=== PATIENT | male | born 1945 | race Caucasian/White ===

== ENCOUNTER 2019-09-05 23:24 | Emergency (ER) | payer MEDICARE, OTHER ==
[~2019-09-05] VITALS: Ht 188 cm; Wt 97.0 kg
--- NOTE | 2019-09-05 23:47 | ED General ---
General Chief Complaint: Cardiac/General Problems Stated Complaint: AXIETY Source of Information: Patient, EMS History of Present Illness Date Seen by Provider: Sep 05, 2019 Time Seen by Provider: 23:24 Initial Comments 74 yo M presenting with complaints of not feeling right. He initially was an EMS call for chest pain. However when EMS arrived he was shaking and seemed anxious and stated that he did not feel right. He has a history of atrial fibrillation. He reports that his blood pressure has been very labile recently. He has also been having a lot of indigestion and heartburn. He does drink beer regularly. He reported drinking 3 beers today. 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 He denies having any cough or congestion. He has no nausea or vomiting. He has had no fever or chills. He denies any pain with urination or change in his bowels. Allergies and Home Medications Allergies Coded Allergies: Sulfa (Sulfonamide Antibiotics) (Verified Allergy, Unknown, 09/06/19) Patient Home Medication List Home Medication List Reviewed: Yes Review of Systems Review of Systems Constitutional: No chills, No fever; malaise EENTM: no symptoms reported Respiratory: No cough, No dyspnea on exertion, No hemoptysis, No short of breath, No stridor, No wheezing Cardiovascular: see HPI; No chest pain (initially an EMS call was for chest pain but patient denies having any chest pain. He states he just doesn't feel right), No edema, No palpitations, No syncope Gastrointestinal: No abdominal pain, No diarrhea; heartburn; No nausea, No vomiting Genitourinary: No dysuria, No frequency Musculoskeletal: no symptoms reported Skin: no symptoms reported Psychiatric/Neurological: Anxiety; Denies Headache, Denies Numbness, Denies Paresthesia Past Xidaqll-Taawpt-Xeraxl Hx Past Med/Social Hx: Reviewed Nursing Past Med/Soc Hx Patient Social History Recent Foreign Travel: No Contact w/Someone Who Travel: No Past Medical History Cardiac: Yes Coronary Artery Disease, High Cholesterol, Hypertension Gastrointestinal: Yes Gastroesophageal Reflux Physical Exam Vital Signs Vital Signs - First Documented 09/05/19 23:32 Temp 36.9 Pulse 71 Resp 25 B/P (MAP) 172/75 (107) Pulse Ox 97 O2 Delivery Room Air Capillary Refill : Height, Weight, BMI Height: '" Weight: lbs. oz. kg; BMI Method: General Appearance: No Apparent Distress, WD/WN HEENT: PERRL/EOMI, Normal ENT Inspection, Pharynx Normal Neck: Full Range of Motion, Normal Inspection, Non Tender, Supple Respiratory: Chest Non Tender, Lungs Clear, Normal Breath Sounds, No Accessory Muscle Use, No Respiratory Distress Cardiovascular: Regular Rate, Rhythm, No Edema, No Murmur, Normal Peripheral Pulses Gastrointestinal: Normal Bowel Sounds, No Pulsatile Mass, Non Tender, Soft Extremity: Normal Capillary Refill, Non Tender, No Calf Tenderness, No Pedal Edema Neurologic/Psychiatric: Alert, Oriented x3, electroplater automatic II-XII Norm as Tested Skin: Normal Color, Warm/Dry Progress/Results/Core Measures Suspected Sepsis SIRS Temperature: Pulse: Respiratory Rate: Laboratory Tests 09/05/19 23:30: White Blood Count 11.7H Blood Pressure / Mean: Laboratory Tests 09/05/19 23:30: Creatinine 1.08, INR Comment 0.9, Platelet Count 257, Total Bilirubin 0.3 Results/Orders Lab Results Laboratory Tests Test 09/05/19 23:30 Range/Units White Blood Count 11.7 H 4.3-11.0 10^3/uL Red Blood Count 4.42 4.35-5.85 10^6/uL Hemoglobin 14.2 13.3-17.7 G/DL Hematocrit 42 40-54 % Mean Corpuscular Volume 96 80-99 FL Mean Corpuscular Hemoglobin 32 25-34 PG Mean Corpuscular Hemoglobin Concent 34 32-36 G/DL Red Cell Distribution Width 12.7 10.0-14.5 % Platelet Count 257 130-400 10^3/uL Mean Platelet Volume 9.5 7.4-10.4 FL Neutrophils (%) (Auto) 57 42-75 % Lymphocytes (%) (Auto) 28 12-44 % Monocytes (%) (Auto) 12 0-12 % Eosinophils (%) (Auto) 2 0-10 % Basophils (%) (Auto) 1 0-10 % Neutrophils # (Auto) 6.6 1.8-7.8 X 10^3 Lymphocytes # (Auto) 3.2 1.0-4.0 X 10^3 Monocytes # (Auto) 1.4 H 0.0-1.0 X 10^3 Eosinophils # (Auto) 0.3 0.0-0.3 10^3/uL Basophils # (Auto) 0.1 0.0-0.1 10^3/uL Prothrombin Time 12.9 12.2-14.7 SEC INR Comment 0.9 0.8-1.4 Activated Partial Thromboplast Time 24 24-35 SEC Sodium Level 136 135-145 MMOL/L Potassium Level 4.3 3.6-5.0 MMOL/L Chloride Level 102 98-107 MMOL/L Carbon Dioxide Level 23 21-32 MMOL/L Anion Gap 11 5-14 MMOL/L Blood Urea Nitrogen 18 7-18 MG/DL Creatinine 1.08 0.60-1.30 MG/DL Estimat Glomerular Filtration Rate > 60 BUN/Creatinine Ratio 17 Glucose Level 102 70-105 MG/DL Calcium Level 9.0 8.5-10.1 MG/DL Corrected Calcium 9.2 8.5-10.1 MG/DL Magnesium Level 1.8 1.6-2.4 MG/DL Total Bilirubin 0.3 0.1-1.0 MG/DL Aspartate Amino Transf (AST/SGOT) 20 5-34 U/L Alanine Aminotransferase (ALT/SGPT) 13 0-55 U/L Alkaline Phosphatase 79 40-136 U/L Troponin I < 0.30 <0.30 NG/ML Pro-B-Type Natriuretic Peptide < 75.0 <75.0 PG/ML Total Protein 6.5 6.4-8.2 GM/DL Albumin 3.7 3.2-4.5 GM/DL Serum Alcohol < 10 <10 MG/DL My Orders Orders - MEL MORAN MD Cbc With Automated Diff (09/05/19 23:43) Magnesium (09/05/19 23:43) Ekg Tracing (09/05/19 23:43) Comprehensive Metabolic Panel (09/05/19 23:43) Protime With Inr (09/05/19 23:43) Partial Thromboplastin Time (09/05/19 23:43) Monitor-Rhythm Ecg Trace Only (09/05/19 23:43) Ed Iv/Invasive Line Start (09/05/19 23:43) Troponin I Fs (09/05/19 23:43) Probnp Fs (09/05/19 23:43) Chest Pa/Lat (2 View) (09/05/19 23:43) Alcohol (09/05/19 23:46) Alprazolam Tablet (Xanax Tablet) (09/06/19 00:00) Rx-Lorazepam (Rx-Ativan) (09/06/19 01:15) Medications Given in ED Current Medications Medications Dose Ordered Sig/Michelle Route Start Time Stop Time Status Last Admin Dose Admin Alprazolam 0.25 mg ONCE ONCE PO 09/06/19 00:00 09/06/19 00:01 DC 09/06/19 00:02 0.25 MG Vital Signs/I&O 09/05/19 09/06/19 23:32 01:15 Temp 36.9 Pulse 71 82 Resp 25 16 B/P (MAP) 172/75 (107) 143/82 Pulse Ox 97 97 O2 Delivery Room Air Room Air Capillary Refill : Progress Note #1: Progress Note Check ECG with CXR and labs to evaluate from a cardiac stand point and look for other sources of medical reason for his shaking and chest pressure from earlier. He is vague and stating that he just does not feel right. 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 Progress Note #2: Progress Note labs stable without acute significant abnormality on CBC, Chemistry, Coags or cardiac enzymes. He had negative alcohol level. No acute ST elevation on his ECG. his CXR did not show acute process. He complained of some epigastric discomfort but this could be related to his indigestion and heart burn symptoms he has been having. Also if he has been under extra stress then it could be causing more symptoms for him too. Will try a low dose ativan 0.5 mg q 8 hr prn until he sees Dr. Thapa Friday as scheduled for follow up. Counseled on follow up and return precautions. ECG Initial ECG Impression Date: Sep 05, 2019 Initial ECG Impression Time: 23:32 Initial ECG Rate: 67 Initial ECG Rhythm: Normal Sinus Initial ECG Comparisson: No Previous ECG Available Comment Normal sinus rhythm with heart rate is 67 bpm. KS interval of 244 ms. QT interval 403 ms and a QTc interval of 426 ms. There is no prior tracing available for comparison. He has no acute ST elevation. Diagnostic Imaging Diagonstic Imaging: Xray Plain Films/CT/US/NM/MRI: chest Comments No acute process in chest on my review of his 2 view films of chest xrays Reviewed: Reviewed by Me Departure Impression Primary Impression: Stress and adjustment reaction Additional Impression: Labile essential hypertension Disposition: HOME, SELF-CARE Condition: Stable Departure-Patient Inst. Decision time for Depature: 01:07 Referrals: BERNARDA THAPA MD (PCP/Family) Primary Care Physician Patient Instructions: Stress, Acid Reflux (Gastroesophageal Reflux Disease), Adult (DC) Add. Discharge Instructions: Continue on your regular medicines. Check with your regular providers for continued concerns on Friday as scheduled. Dr. Thapa may decide to have you take some medicine for stress and anxiety to help your nerves. 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 You could try the Lorazepam (Ativan) 0.5 mg tablets 1 every 8 hours as needed for anxiety/stress until you see Dr. Thapa on Friday and see if that helps with your symptoms All discharge instructions reviewed with patient and/or family. Voiced understanding. MEL MORAN MD Sep 05, 2019 23:47
[2019-09-05 23:50] LABS: BASOPHILS % (AUTO) 1 % (0-10); EOSINOPHILS % (AUTO) 2 % (0-10); HEMATOCRIT 42 % (40-54); HEMOGLOBIN 14.2 G/DL (13.3-17.7); LYMPHOCYTES % (AUTO) 28 % (12-44); MEAN CORPUSCULAR HEMOGLOBIN 32 PG (25-34); MEAN CORPUSCULAR HGB CONC 34 G/DL (32-36); MEAN CORPUSCULAR VOLUME 96 FL (80-99); MEAN PLATELET VOLUME 9.5 FL (7.4-10.4); MONOCYTES % (AUTO) 12 % (0-12); NEUTROPHILS # (AUTO) 6.6 X 10^3 (1.8-7.8); NEUTROPHILS % (AUTO) 57 % (42-75); PLATELET COUNT 257 10^3/uL (130-400); RED CELL DISTRIBUTION WIDTH 12.7 % (10.0-14.5); WHITE BLOOD COUNT 11.7 10^3/uL (4.3-11.0)
[2019-09-05 23:51] LABS: BASOPHILS # (AUTO) 0.1 10^3/uL (0.0-0.1); EOSINOPHILS # (AUTO) 0.3 10^3/uL (0.0-0.3); LYMPHOCYTES # (AUTO) 3.2 X 10^3 (1.0-4.0); MONOCYTES # (AUTO) 1.4 X 10^3 (0.0-1.0)
[2019-09-05 23:57] LABS: INR 0.9 (0.8-1.4); PROTHROMBIN TIME PATIENT 12.9 SEC (12.2-14.7)
[2019-09-06] MEDS ORDERED: ALPRAZolam 0.25 MG (XANAX) TAB PO ONE
[2019-09-06 00:02] LABS: BILIRUBIN,TOTAL 0.3 MG/DL (0.1-1.0); BUN/CREATININE RATIO 17; CARBON DIOXIDE 23 MMOL/L (21-32); CHLORIDE 102 MMOL/L (98-107); CREATININE SERUM 1.08 MG/DL (0.60-1.30); GFR ESTIMATED > 60; GLUCOSE 102 MG/DL (70-105); POTASSIUM 4.3 MMOL/L (3.6-5.0); SODIUM 136 MMOL/L (135-145)
[2019-09-06 00:03] LABS: ALANINE AMINOTRANSFERASE 13 U/L (0-55); ALBUMIN 3.7 GM/DL (3.2-4.5); ALKALINE PHOSPHATASE 79 U/L (40-136); TOTAL PROTEIN 6.5 GM/DL (6.4-8.2)
[2019-09-06] MEDS ORDERED: DILT180C54 (00:11)
[2019-09-06 00:12] LABS: MAGNESIUM 1.8 MG/DL (1.6-2.4)
[2019-09-06 01:15] VITALS: BP 143/82
[2019-09-06] MEDS ORDERED: RX-LORAZEPAM (ATIVAN) 0.5 MG TAB PPK#4 PO PRN (01:15)
--- NOTE | 2019-09-06 07:23 | Diagnostic Imaging Report ---
INDICATION: Hypertension and tremor PA and lateral views of the chest are obtained. There is no previous study for comparison. Heart size and pulmonary vascularity are within normal limits. Small focal density is seen in the right base which could be due to atelectasis, pneumonitis or scarring. Otherwise there is no evidence of pneumothorax, consolidation or significant pleural fluid. There is mild thoracic spondylosis. IMPRESSION: Faint nodular density in the right lung base may be due to atelectasis, pneumonitis or scarring. If older studies are available, comparison would be useful. Otherwise, consideration could be given to short-term chest radiograph or CT imaging of the chest. Dictated by: Dictated on workstation # [id number]
== END 2019-09-06 01:15 | disposition home or self-care (01) ==
LOC: ER FS 23:30
DX: F43.9 Reaction to severe stress, unspecified (principal); F43.29 Adjustment disorder with other symptoms; I10 Essential (primary) hypertension; E78.00 Pure hypercholesterolemia, unspecified; I25.10 Atherosclerotic heart disease of native coronary artery without angina pectoris; K21.9 Gastro-esophageal reflux disease without esophagitis; I48.91 Unspecified atrial fibrillation; Z88.2 Allergy status to sulfonamides
CPT/HCPCS: 36415; 71046; 80053; 80320; 83735; 83880; 84484; 85025; 85610; 85730; 93005

== ENCOUNTER → 2021-10-23 | Outpatient (CLI) | payer MEDICARE ==
[~2021-10-23] MED LIST: DILT180C54
--- NOTE | 2021-10-23 15:04 | Diagnostic Imaging Report ---
PROCEDURE: CT abdomen and pelvis without contrast. TECHNIQUE: Multiple contiguous axial images were obtained through the abdomen and pelvis without the use of intravenous contrast. Auto Exposure Controls were utilized during the CT exam to meet ALARA standards for radiation dose reduction. INDICATION: Hematuria, belly pain. COMPARISON: None. FINDINGS: The lung bases are clear. The heart is normal in size. The liver demonstrates numerous ill-defined hypodense lesions. The largest is at the dome of the right lobe measuring up to 3.2 cm in diameter. The spleen has a calcified granuloma but otherwise appears normal. The pancreas demonstrates a hypodense mass near the pancreatic head measuring 3.3 cm x 2.4 cm. The adrenal glands appear normal. The kidneys are normal with no hydronephrosis or masses seen on this noncontrast exam. The bowel loops are nondistended without obstruction. The appendix is normal. There is diverticulosis of the descending and sigmoid colon without diverticulitis. There is a small amount of ascites. There is nodularity in the omentum of the left upper quadrant of the abdomen, concerning for metastatic disease. No free air is seen. Scattered lymph nodes are seen which appear markedly enlarged. The abdominal aorta and the common iliac arteries are ectatic. No acute osseous abnormality is seen. There are advanced degenerative changes in the lumbar spine with transitional anatomy at the lumbosacral junction. IMPRESSION: 1. 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 2. Small amount of ascites. 3. Ectatic abdominal aorta. Dictated by: Dictated on workstation # [id number]
== END ==
LOC: RAD 13:52 → EDBD 13:52
PROVIDERS: ATTEND Nurse Practitioner Family
DX: I77.811 Abdominal aortic ectasia (principal); R31.9 Hematuria, unspecified
CPT/HCPCS: 74176

== ENCOUNTER 2021-10-31 13:04 | Outpatient (RCR) | payer MEDICARE | END 2021-11-05 | LOC: ONC 13:04 | PROVIDERS: ATTEND Internal Medicine Hematology & Oncology | DX: C25.9 Malignant neoplasm of pancreas, unspecified (principal) | CPT/HCPCS: 99214 ==

== ENCOUNTER 2021-12-07 13:32 | Emergency (ER) | payer MEDICARE ==
[~2021-12-07] VITALS: Ht 187.9 cm; Wt 95.2 kg
--- NOTE | 2021-12-07 13:47 | ED Abdominal Pain ---
General Stated Complaint: ABD PAIN Source of Information: Patient Exam Limitations: No Limitations (CHARLES CALLOWAY MED STUDENT) Source of Information: Old Records (GRECIA HURLEY MD) History of Present Illness Date Seen by Provider: Jan 03, 2022 Time Seen by Provider: 13:40 Initial Comments Mr. Burch is a 76yo Male with PMH of terminal pancreatic and Liver cancer, Afib, and Reflux who presents to ED today due to swelling in his abdomen that he is concerned is ascites. He Has chronic pain in his stomach for the past 5-6 years. He states the pain is not worse than usual but he has swelling and tenderness in his abdomen that is new and wanted to get it drained before the weekend. He is also having trouble voiding and has difficulty starting a stream. He has Pancreatic cancer with mets to liver and was told his chance of survival with treatment was 5% so he has elected not to undergo treatment. He takes hydrocodone for chronic pain and last took it about 90 minutes ago. He does not complain of any other symptoms today. Does not drink, smoke, or use drugs. Allergic to sulfa. He has never had a paracentesis before. (CHARLES CALLOWAY MED STUDENT) Initial Comments Patient additionally states he was treated for urinary tract infection in [place] several weeks ago. He has had persistent urinary issues since then including weak urine stream, urinary hesitance, and dark urine. He has a mild to moderate tenderness throughout the abdomen with moderate distention that is still soft. Patient has [facility] He elected to forego biopsies because the CT scan was fairly convincing for pancreatic cancer. 5-year survival chances were so low as quoted by Dr. Castañeda and that the patient did not want to undergo any cancer treatments. He is aware that his life expectancy may be quite short, may be even days or weeks. I have advised that he seek out hospice services. 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 (GRECIA HURLEY MD) Allergies and Home Medications Allergies Coded Allergies: Sulfa (Sulfonamide Antibiotics) (Verified Allergy, Unknown, 09/06/19) Patient Home Medication List Home Medication List Reviewed: Yes (GRECIA HURLEY MD) Cefdinir (Cefdinir) 300 Mg Capsule, 300 MG PO BID Prescribed by: GRECIA LOPES on 12/07/21 161 Diltiazem HCl (Cartia Xt) 180 Mg Cap.er.24h, (Reported) Entered as Reported by: LUCIO DELGADILLO on 09/06/19 0011 Furosemide (Lasix) 20 Mg Tablet, 20 MG PO DAILY PRN for Swelling Prescribed by: GRECIA LOPES on 12/07/21 161 Potassium Chloride (Potassium Chloride) 10 Meq Tab.er.prt, 10 MEQ PO DAILY PRN for DIRECTED Prescribed by: GRECIA LOPES on 12/07/211610 Tamsulosin HCl (Flomax) 0.4 Mg Cap, 0.4 MG PO DAILY Prescribed by: GRECIA LOPES on 12/07/211611 Review of Systems Review of Systems Constitutional: No chills, No fever; weakness EENTM: No Blurred Vision, No Double Vision Respiratory: Denies Cough, Denies Shortness of Air Cardiovascular: Denies Chest Pain; Edema (abdominal); Denies Palpitations Gastrointestinal: Abdomen Distended, Abdominal Pain (diffuse), Constipated; Denies Diarrhea, Denies Nausea; Poor Appetite; Denies Vomiting Genitourinary: Denies Hematuria; Other (difficulty initiating a void) Musculoskeletal: No joint pain, No joint swelling Skin: No lesions, No rash Psychiatric/Neurological: Denies Headache, Denies Numbness (CHARLES CALLOWAY STUDENT) Past Ortljvz-Auiwnq-Hopdkl Hx Patient Social History Tobacco Use?: No Substance use?: No Alcohol Use?: No (GRECIA HURLEY MD) Seasonal Allergies Seasonal Allergies: No (CHARLES CALLOWAY) Past Medical History Surgeries: Yes Abdominal Respiratory: No Cardiac: Yes Coronary Artery Disease, High Cholesterol, Hypertension Genitourinary: No Gastrointestinal: Yes Gastroesophageal Reflux Musculoskeletal: No Endocrine: No HEENT: No Cancer: No Psychosocial: No Integumentary: No Blood Disorders: No (CHARLES CALLOWAY) Cancer: Yes Liver, Pancreatic (GRECIA HURLEY MD) Physical Exam Vital Signs Vital Signs - First Documented 12/07/21 12/07/21 13:32 16:30 Temp 36.1 Pulse 84 Resp 20 B/P (MAP) 137/65 (89) Pulse Ox 98 O2 Delivery Room Air (GRECIA HURLEY MD) Vital Signs Capillary Refill : (CHARLES CALLOWAY MED STUDENT) Height/Weight/BMI Height: '" Weight: lbs. oz. kg; 27.00 BMI Method: General Appearance: mild distress (uncomfortable), other (chronically ill) HEENT: PERRL/EOMI, pharynx normal Respiratory: chest non-tender, lungs clear, normal breath sounds Cardiovascular: normal peripheral pulses, regular rate, rhythm, no edema, no murmur Peripheral Pulses: 2+ Radial Pulses (R), 2+ Radial Pulses (L) Gastrointestinal: normal bowel sounds, distended; No guarding; tenderness (generalized); No mass Extremities: non-tender, no pedal edema, no calf tenderness Neurologic/Psychiatric: alert, normal mood/affect, oriented x 3 Skin: normal color, warm/dry, other (no jaundice noted) (CHARLES CALLOWAY MED STUDENT) Progress/Results/Core Measures Results/Orders Lab Results Laboratory Tests Test 12/07/21 13:40 12/07/21 14:59 Range/Units White Blood Count 20.3 H 4.3-11.0 10^3/uL Red Blood Count 4.36 4.30-5.52 10^6/uL Hemoglobin 13.7 13.3-17.7 g/dL Hematocrit 40 40-54 % Mean Corpuscular Volume 92 80-99 fL Mean Corpuscular Hemoglobin 31 25-34 pg Mean Corpuscular Hemoglobin Concent 34 32-36 g/dL Red Cell Distribution Width 14.1 10.0-14.5 % Platelet Count 265 130-400 10^3/uL Mean Platelet Volume 9.2 9.0-12.2 fL Immature Granulocyte % (Auto) 3 % Neutrophils (%) (Auto) 75 42-75 % Lymphocytes (%) (Auto) 7 L 12-44 % Monocytes (%) (Auto) 12 0-12 % Eosinophils (%) (Auto) 2 0-10 % Basophils (%) (Auto) 1 0-10 % Neutrophils # (Auto) 15.2 H 1.8-7.8 10^3/uL Lymphocytes # (Auto) 1.5 1.0-4.0 10^3/uL Monocytes # (Auto) 2.4 H 0.0-1.0 10^3/uL Eosinophils # (Auto) 0.4 H 0.0-0.3 10^3/uL Basophils # (Auto) 0.2 H 0.0-0.1 10^3/uL Immature Granulocyte # (Auto) 0.6 H 0.0-0.1 10^3/uL Neutrophils % (Manual) 74 % Lymphocytes % (Manual) 10 % Monocytes % (Manual) 13 % Eosinophils % (Manual) 3 % Basophils % (Manual) 0 % Blood Morphology Comment NORMAL Prothrombin Time 15.5 H 12.2-14.7 SEC INR Comment 1.2 0.8-1.4 Sodium Level 127 L 135-145 MMOL/L Potassium Level 4.8 3.6-5.0 MMOL/L Chloride Level 96 L 98-107 MMOL/L Carbon Dioxide Level 19 L 21-32 MMOL/L Anion Gap 12 5-14 MMOL/L Blood Urea Nitrogen 28 H 7-18 MG/DL Creatinine 0.90 0.60-1.30 MG/DL Estimat Glomerular Filtration Rate 87 BUN/Creatinine Ratio 31 Glucose Level 115 H 70-105 MG/DL Calcium Level 9.0 8.5-10.1 MG/DL Corrected Calcium 9.8 8.5-10.1 MG/DL Total Bilirubin 1.8 H 0.1-1.0 MG/DL Aspartate Amino Transf (AST/SGOT) 52 H 5-34 U/L Alanine Aminotransferase (ALT/SGPT) 41 0-55 U/L Alkaline Phosphatase 426 H 40-136 U/L C-Reactive Protein High Sensitivity 8.98 H 0.00-0.50 MG/DL Total Protein 6.1 L 6.4-8.2 GM/DL Albumin 3.0 L 3.2-4.5 GM/DL Urine Color ORANGE Urine Clarity CLEAR Urine pH 6.0 5-9 Urine Specific [place] 1.025 H 1.016-1.022 Urine Protein 1+ H NEGATIVE Urine Glucose (UA) NEGATIVE NEGATIVE Urine Ketones NEGATIVE NEGATIVE Urine Nitrite NEGATIVE NEGATIVE Urine Bilirubin 1+ H NEGATIVE Urine Urobilinogen 1.0 < = 1.0 MG/DL Urine Leukocyte Esterase 1+ H NEGATIVE Urine RBC (Auto) TRACE-I H NEGATIVE Urine RBC RARE /HPF Urine WBC 10-25 H /HPF Urine Squamous Epithelial Cells 0-2 /HPF Urine Crystals PRESENT H /LPF Urine Amorphous Sediment RARE RODY URATES H /LPF Urine Bacteria TRACE /HPF Urine Casts PRESENT /LPF Urine Granular Casts 0-2 H /LPF Urine Mucus LARGE H /LPF Urine Culture Indicated YES (GRECIA HURLEY MD) My Orders Orders - GRECIA HURLEY MD Cbc With Automated Diff (12/07/21 13:43) Comprehensive Metabolic Panel (12/07/21 13:43) Protime With Inr (12/07/21 13:43) Ua Culture If Indicated (12/07/21 13:43) Ed Iv/Invasive Line Start (12/07/21 13:43) Hs C Reactive Protein (12/07/21 14:10) Bladder Scan (12/07/21 14:10) Manual Differential (12/07/21 13:40) Lidocaine 2% (Urojet) (Xylocaine Urojet) (12/07/21 15:15) Cardona Cath (12/07/21 15:04) Urine Culture (12/07/21 14:59) Ceftriaxone 1 Gm Pre-Mix (Rocephin 1 Gm (12/07/21 15:40) (GRECIA HURLEY MD) Medications Given in ED (GRECIA HURLEY MD) Vital Signs/I&O 12/07/21 12/07/21 13:32 16:30 Temp 36.1 Pulse 84 100 Resp 20 18 B/P (MAP) 137/65 (89) 112/84 Pulse Ox 98 O2 Delivery Room Air Room Air 12/08/21 00:00 Intake Total 50 ml Balance 50 ml (GRECIA HURLEY MD) Progress Progress Note : Progress Note Lab work-up revealed leukocytosis with a mild elevation in CRP. I discussed the situation with Dr. Mohan. We do not believe he has spontaneous bacterial peritonitis as he does not appear to have an acute abdomen on exam. His leukocytosis and CRP are more likely secondary to the cancer and smoldering urinary tract infection. He was treated with Rocephin and prescribed cefdinir for treatment of UTI. Because of his urinary symptoms, there was concern that urinary retention may be playing a role in his abdominal discomfort and distention. Bladder scan revealed 317 mL. Patient was able to void only about 20 mL after that bladder scan. He wanted to try a catheter to see if that improved his symptoms. Cardona catheter was placed and yielded about 200 mL of urine. This did not improve his symptoms any. Cardona catheter was removed. I discussed the situation with Dr. Mohan. He is willing to try a paracentesis next week. He requested that the patient's information the faxed to the office. He may try to perform paracentesis next Friday. Patient was agreeable to this plan. Patient also wanted to try some diuretic therapy to determine if that would improve the distention. He has spironolactone at home which she has not been taking it. He can resume that. If that is not effective, he may try Lasix. A short course of Lasix was prescribed to use as needed. See discharge instructions for further discussion. Dr. Mohan requested that labs be repeated when patient has paracentesis. An outpatient order form was provided. (GRECIA HURLEY MD) Departure Impression Primary Impression: Urinary tract infection Qualified Codes: N39.0 - Urinary tract infection, site not specified Additional Impressions: Abdominal ascites Qualified Codes: R18.0 - Malignant ascites Hyponatremia Pancreatic cancer metastasized to liver Urinary hesitancy Disposition: HOME, SELF-CARE Condition: Stable Departure-Patient Inst. Referrals: GIBSON MOHAN MD NO,LOCAL PHYSICIAN (PCP) Primary Care Physician Patient Instructions: Pancreatic Cancer, Urinary Tract Infection, Adult ED Add. Discharge Instructions: Drink plenty of clear liquids to stay well-hydrated. Your sodium is a bit low. You may be able to improve your sodium level by lightly salting her food. You may resume your spironolactone to help with fluid retention. If this does not improve your fluid retention, consider adding Lasix (furosemide) as prescribed along with potassium. Follow-up with your primary care provider as soon as possible. Your urine culture result should be available by Friday. You can review this either by calling your primary care provider or checking in with the ER. Start Flomax for urinary retention. Complete the entire course of your antibiotics unless otherwise instructed by a healthcare provider. Call with questions or concerns. Return to the ER if you have worsening symptoms. Consider consulting with hospice so that you are prepared to engage hospice services when ready. You may discuss this with your primary care provider. Dr. Mohan would like to attempt a paracentesis to drain your excess abdominal fluid next Friday. He should be scheduling that for you. While you are at the hospital, also obtain labs as ordered on the order sheet provided from the ER. Please bring the order sheet with you when you come back to the hospital. Scripts Tamsulosin HCl (Flomax) 0.4 Mg Cap 0.4 MG PO DAILY, #30 CAP Prov: GRECIA HURLEY MD 12/07/21 Cefdinir (Cefdinir) 300 Mg Capsule 300 MG PO BID, #20 CAP 0 Refills Prov: GRECIA HURLEY MD 12/07/21 Potassium Chloride (Potassium Chloride) 10 Meq Tab.er.prt 10 MEQ PO DAILY PRN for DIRECTED, #10 TAB Prov: GRECIA HURLEY MD 12/07/21 Furosemide (Lasix) 20 Mg Tablet 20 MG PO DAILY PRN for Swelling, #10 TAB Take for abdominal swelling or fluid retention. Take with potassium. Prov: GRECIA HURLEY MD 12/07/21 Medical Student Attestation and Attending Note: I have personally interviewed and examined this patient along with Charles Calloway, MS 4. I have reviewed student documentation including history, physical, and assessments. I agree with the documentation except where otherwise noted. Exam: General: Alert, oriented, no acute distress, well developed HEENT: Normocephalic and atraumatic, mucous membranes somewhat dry Heart: Regular rate and rhythm without murmur Lungs: Clear to auscultation bilaterally with normal effort Abdomen: Soft, mild generalized tenderness, moderate distention that is still soft, normal bowel sounds Neuropsych: Alert, oriented, no focal deficits Skin: Warm and dry without rashes (GRECIA HURLEY MD) Copy Copies To 1: YAKELIN BROWN DO Copies To 2: GIBSON MOHAN MD, DEREK MED STUDENT Dec 07, 2021 13:47 GRECIA HURLEY MD Dec 07, 2021 16:05
[2021-12-07 14:01] LABS: BASOPHILS # (AUTO) 0.2 10^3/uL (0.0-0.1); BASOPHILS % (AUTO) 1 % (0-10); EOSINOPHILS # (AUTO) 0.4 10^3/uL (0.0-0.3); EOSINOPHILS % (AUTO) 2 % (0-10); HEMATOCRIT 40 % (40-54); HEMOGLOBIN 13.7 g/dL (13.3-17.7); LYMPHOCYTES # (AUTO) 1.5 10^3/uL (1.0-4.0); LYMPHOCYTES % (AUTO) 7 % (12-44); MEAN CORPUSCULAR HEMOGLOBIN 31 pg (25-34); MEAN CORPUSCULAR HGB CONC 34 g/dL (32-36); MEAN CORPUSCULAR VOLUME 92 fL (80-99); MEAN PLATELET VOLUME 9.2 fL (9.0-12.2); MONOCYTES # (AUTO) 2.4 10^3/uL (0.0-1.0); MONOCYTES % (AUTO) 12 % (0-12); NEUTROPHILS # (AUTO) 15.2 10^3/uL (1.8-7.8); NEUTROPHILS % (AUTO) 75 % (42-75); PLATELET COUNT 265 10^3/uL (130-400); WHITE BLOOD COUNT 20.3 10^3/uL (4.3-11.0)
[2021-12-07 14:08] LABS: BILIRUBIN,TOTAL 1.8 MG/DL (0.1-1.0); CREATININE SERUM 0.9 MG/DL (0.60-1.30); POTASSIUM 4.8 MMOL/L (3.6-5.0); TOTAL PROTEIN 6.1 GM/DL (6.4-8.2)
[2021-12-07 14:41] LABS: BASOPHILS % (MANUAL) 0 %; EOSINOPHILS % (MANUAL) 3 %; LYMPHOCYTES % (MANUAL) 10 %; MONOCYTES % (MANUAL) 13 %; NEUTROPHILS % (MANUAL) 74 %
[2021-12-07 14:42] LABS: RBC MORPH NORMAL
[2021-12-07 14:44] LABS: INR 1.2 (0.8-1.4); PROTHROMBIN TIME PATIENT 15.5 SEC (12.2-14.7)
[2021-12-07 15:06] LABS: CLARITY,URINE CLEAR; COLOR,URINE ORANGE; GLUCOSE, URINE (UA) NEGATIVE (NEGATIVE); KETONES,URINE NEGATIVE (NEGATIVE); LEUKOCYTE ESTERASE ,URINE 1+ (NEGATIVE); NITRITE,URINE NEGATIVE (NEGATIVE); PROTEIN,URINE 1+ (NEGATIVE)
[2021-12-07] MEDS ORDERED: LIDOCAINE UROJET 2% GEL 10 ML PKG TOP ONE (15:15)
[2021-12-07 15:20] LABS: BACTERIA,URINE TRACE /HPF; RBC,URINE RARE /HPF; SQUAMOUS EPITHELIAL CELL,UR 0-2 /HPF
[2021-12-07 15:21] LABS: AMORPHOUS SEDIMENT,UR RARE AMOR URATES /LPF; GRANULAR CASTS,URINE 0-2 /LPF
[2021-12-07 15:22] LABS: BILIRUBIN,URINE 1+ (NEGATIVE)
[2021-12-07] MEDS ORDERED: cefTRIAXone 1 GM PRE-MIX 50 ML IV STA (15:40)
[2021-12-07] MEDS ORDERED: FURO-125 PO (16:11)
[2021-12-07] MEDS ORDERED: CEFD300C3 PO (16:11)
[2021-12-07] MEDS ORDERED: POTA10TA37 PO (16:11)
[2021-12-07] MEDS ORDERED: TMSL.4C PO (16:12)
[2021-12-07 16:30] VITALS: BP 112/84
== END 2021-12-07 16:30 | disposition home or self-care (01) ==
LOC: EDUNIT# 13:32 → ER 13:33
DX: C78.7 Secondary malignant neoplasm of liver and intrahepatic bile duct (principal); N39.0 Urinary tract infection, site not specified; R18.0 Malignant ascites; E87.1 Hypo-osmolality and hyponatremia; R39.11 Hesitancy of micturition
CPT/HCPCS: 36415; 51702; 80053; 81000; 85007; 85027; 85610; 86141; 87077; 87088

== ENCOUNTER → 2021-12-11 | Outpatient (CLI) | payer MEDICARE ==
[~2021-12-11] MED LIST changes: +CEFD300C3 PO; +FURO-125 PO; +POTA10TA37 PO; +TMSL.4C PO
--- NOTE | 2021-12-11 13:58 | Diagnostic Imaging Report ---
INDICATION: Ascites. Sonographic interrogation of all 4 quadrants of the abdomen was performed. There is a moderate amount of ascites in the right lower quadrant. This was marked on the patient's skin for Dr. Mohan for performance of paracentesis. IMPRESSION: Moderate right lower quadrant ascites. Dictated by: Dictated on workstation # [id number]
--- NOTE | 2021-12-11 14:42 | CONSULTATION REPORT ---
DATE OF SERVICE: 12/11/2021 ATTENDING SENIOR CUSTOMER SERVICE REPRESENTATIVE: [facility] in [place], [place]. HISTORY OF PRESENT ILLNESS: The patient is a 76-year-old male with a history of metastatic pancreatic cancer, which was detected by CT scan in 10/2021. He reports that he developed significant back pain in the summer of 2020, however, was unsure of what this was. He then developed worsening pain and was unable to urinate and was also having a cardiac arrhythmia and was seen at [facility] and treated. He eventually underwent a CT scan and was found to have a metastatic pancreatic cancer. Since that time, he has elected to do no therapy. He has developed abdominal distention consistent with ascites, which was confirmed by ultrasound. He does not report any past history of smoking or alcohol. Upon examination, his abdomen is distended with a positive fluid shift wave. He has also been seen by oncology, where again he decided against any type of therapy. PAST MEDICAL HISTORY: Atrial fibrillation, hypertension, hypercholesterolemia, and metastatic pancreatic cancer. PAST SURGICAL HISTORY: Umbilical hernia repair. ALLERGIES: SULFA. MEDICATIONS: Cefdinir 180 mg daily, furosemide 20 mg daily, potassium 10 mEq daily, tamsulosin 0.4 mg daily, and spironolactone daily. SOCIAL HISTORY: Negative smoke, negative alcohol. FAMILY HISTORY: Noncontributory. REVIEW OF SYSTEMS: This is a well-nourished male currently in no acute distress. He is not experiencing any shortness of breath or difficulty in breathing. No chest pain, palpitations, diaphoresis. No nausea or vomiting; however, he has had loss of appetite. He states that he is having bowel movements. No red blood per rectum, no dark tarry stools. No fever, chills, no recent inadvertent weight loss. All other review of systems negative. PHYSICAL EXAMINATION: VITAL SIGNS: Temperature is 36.1, pulse 100, respirations 18, blood pressure 112/84, and pulse ox 84% on room air. CHEST: A few scattered rales bilaterally. HEART: Regular, no murmurs. EXTREMITIES: No lower extremity edema and negative Homans sign. HEENT: No scleral icterus. NECK: No cervical lymphadenopathy. ABDOMEN: Distended with a positive fluid shift wave. There is no peritonitis. No hernias. SKIN: Warm and dry. ASSESSMENT AND PLAN: A 76-year-old male with a metastatic pancreatic cancer with symptomatic ascites. We will proceed with ultrasound marking and diagnostic as well as symptomatic paracentesis. If he has reoccurrence, we will have him call the office and we will schedule this as an outpatient; however, if this becomes more frequent, we will then recommend placement of a tunneled peritoneal catheter for peritoneal drainage at home. Job ID: [id number] DocumentID: [id number] Dictated Date: 12/11/2021 14:29:41 Copywriting Intern Date: 12/11/2021 14:40:48 Dictated By: GIBSON EVANGELISTA MD [facility]
== END ==
LOC: SDC 12:38
PROVIDERS: ATTEND Surgery
DX: C25.9 Malignant neoplasm of pancreas, unspecified (principal); I48.91 Unspecified atrial fibrillation; I10 Essential (primary) hypertension; E78.00 Pure hypercholesterolemia, unspecified
CPT/HCPCS: 76942; 87070; 87205

== ENCOUNTER → 2021-12-11 | Outpatient (CLI) | payer MEDICARE ==
[2021-12-11 10:40] VITALS: BP 124/96
[2021-12-11 13:43] LABS: BASOPHILS # (AUTO) 0.1 10^3/uL (0.0-0.1); BASOPHILS % (AUTO) 1 % (0-10); EOSINOPHILS # (AUTO) 0.3 10^3/uL (0.0-0.3); EOSINOPHILS % (AUTO) 1 % (0-10); HEMATOCRIT 41 % (40-54); HEMOGLOBIN 13.9 g/dL (13.3-17.7); LYMPHOCYTES % (AUTO) 5 % (12-44); MEAN CORPUSCULAR HEMOGLOBIN 31 pg (25-34); MEAN CORPUSCULAR HGB CONC 34 g/dL (32-36); MEAN CORPUSCULAR VOLUME 93 fL (80-99); MONOCYTES # (AUTO) 1.8 10^3/uL (0.0-1.0); MONOCYTES % (AUTO) 9 % (0-12); NEUTROPHILS # (AUTO) 16.2 10^3/uL (1.8-7.8); NEUTROPHILS % (AUTO) 82 % (42-75); PLATELET COUNT 196 10^3/uL (130-400); WHITE BLOOD COUNT 19.9 10^3/uL (4.3-11.0)
[2021-12-11 14:20] LABS: TOTAL PROTEIN 6.1 GM/DL (6.4-8.2)
[2021-12-11 14:24] LABS: CREATININE SERUM 0.87 MG/DL (0.60-1.30)
[2021-12-11 14:26] LABS: INR 1.2 (0.8-1.4); MAGNESIUM 1.8 MG/DL (1.6-2.4); PROTHROMBIN TIME PATIENT 15.9 SEC (12.2-14.7)
[2021-12-11 14:28] LABS: BAND NEUTROPHILS 1 %; LYMPHOCYTES % (MANUAL) 5 %; MONOCYTES % (MANUAL) 7 %; NEUTROPHILS % (MANUAL) 87 %
[2021-12-11 14:29] LABS: RBC MORPH NORMAL
--- NOTE | 2021-12-11 19:09 | OPERATIVE REPORT ---
DATE OF SERVICE: 12/11/2021 ATTENDING MEAT PACKAGER: [place], [place]. PREPROCEDURE DIAGNOSIS: Metastatic pancreatic cancer with symptomatic ascites. POSTPROCEDURE DIAGNOSIS: Metastatic pancreatic cancer with symptomatic ascites. PROCEDURE: Paracentesis. SURGEON: Gibson Evangelista MD ANESTHESIA: Local. ESTIMATED BLOOD LOSS: Minimal. FINDINGS: A straw yellow transudative fluid. DISPOSITION: The patient tolerated the procedure well. INDICATIONS: The patient is a 76-year-old male who developed back pain 08/2021 and was unsure of what this was. He states that he slowly had declined from that point and eventually, a CT scan was performed and he was found to have a metastatic pancreatic cancer based on CT scan result. He was referred to oncology where survivability even with chemotherapy was low and he elected against any further therapy. He has had significant abdominal distention in the past several months, which has been uncomfortable and we will get an ultrasound of the abdomen for marking for paracentesis. DESCRIPTION OF PROCEDURE: The abdomen was prepped and draped in standard surgical fashion. A 1% lidocaine was used to anesthetize the skin, subcutaneous tissue, muscle layers as well as the peritoneal lining. A vertical skin incision was made using 11 blade and the trocar and sheath were then introduced withdrawing of straw yellow transudative fluid. The catheter was then placed over the trocar without any resistance. The catheter was then connected to tubing and a gravity drainage bag. Catheter was then cleaned and covered with sterile gauze followed by Op-Site. The patient tolerated the procedure well. We will continue with drainage until his abdomen is more decompressed and he is less symptomatic and there was minimal drainage and then instruct staff to remove the catheter. Also, if he does have a recurrent abdominal distention and ascites, we will just instruct him to call the office and we will schedule him as an outpatient and day surgery. If this becomes more frequent, we will recommend a tunneled peritoneal catheter, which we will schedule in the operating room. Job ID: [id number] DocumentID: [id number] Dictated Date: 12/11/2021 14:33:18 Certified Shorthand Reporter Date: 12/11/2021 19:08:47 Dictated By: GIBSON EVANGELISTA MD
== END ==
LOC: SDC 12:48
PROVIDERS: ATTEND Family Medicine
DX: C25.9 Malignant neoplasm of pancreas, unspecified (principal); E87.1 Hypo-osmolality and hyponatremia
CPT/HCPCS: 36415; 49082; 80053; 83735; 85007; 85027; 85610